=== PATIENT | female | born 1990 | race Caucasian/White ===

== ENCOUNTER 2017-08-07 18:23 | Emergency (ER) | payer OTHER ==
[~2017-08-07] VITALS: Ht 154.9 cm; Wt 91.8 kg
[~2017-08-07 18:23] MED LIST: MTR600X PO; PRENTAB26 PO
[2017-08-07 18:27] VITALS: TEMP 36.6; Ht 154.9 cm; Wt 91.8 kg
[2017-08-07] MEDS ORDERED: HYDROCODONE/ACETAMIN 5/325MG TAB PO STA (18:49)
[2017-08-07] MEDS ORDERED: IBUPROFEN 600 MG TAB PO STA (18:49)
[2017-08-07] MEDS ORDERED: AMOXICILLIN 250 MG CAP PO ONE (19:00)
--- NOTE | 2017-08-07 19:07 | EMERGENCY ROOM VISIT NOTE ---
ED Visit Note First contact with patient: 18:32 CHIEF COMPLAINT: Toothache HISTORY OF PRESENT ILLNESS: This 27-year-old female patient presented to the emergency department with her significant other with a progressive toothache for past few months. The patient believes it is coming from right lower molar. The pain is now steady and severe and radiates to the face. The patient does not have a dentist appointment set up yet. The patient has been busy with work and putting it off.. They rate their pain a 7/10 and the ibuprofen and Tylenol they have been taking has not relieved the pain. Denies facial swelling or fever. The patient denies any discharge from the mouth. REVIEW OF SYSTEMS: A 6 system review of systems was completed with positives and pertinent negatives listed in the HPI. ALLERGIES: No known drug allergies MEDICATIONS: Reviewed PMH: Otherwise healthy SOCIAL HISTORY: Smokes 6-7 cigarettes per day. Denies EtOH. She is employed. PHYSICAL EXAM: Vitals are noted on the nurse's note and reviewed by myself. Vital signs stable. Temperature 36.6C orally. GENERAL: 27-year-old female, in no acute distress, nondiaphoretic, well-developed well-nourished. Mouth: The right lower molar is very carious and fractured. The gum is swollen and tender around it, without any discharge or signs of an abscess. The remainder of the pharynx and tonsils are without erythema, edema, or exudate. The airway is patent. There is no facial swelling, cervical or submandibular lymphadenopathy. The patient appears uncomfortable and in pain. The patient has overall poor dental hygiene. EARS: External auditory canals clear, tympanic membranes pearly martinez without erythema or effusion bilaterally. ED COURSE: The patient was seen and examined. She was given 1 dose of amoxicillin. She was also given a dose of [place] and Motrin. Discharge instructions were reviewed, and she was discharged in good condition DIAGNOSIS: Odontalgia DISCHARGE INSTRUCTIONS & TREATMENT: Call a dentist as soon as possible for definitive treatment Continue Orajel Ibuprofen 600 mg every 6 hours [place] 1-2 tabs every 4 hours for severe pain. Do not drink alcohol or drive while taking this medication. This may be taken with ibuprofen, but avoid Tylenol. Amoxicillin 500 mg t.i.d. x 10 days for infection. Return sooner if shortness of breath, discharge, or change in vision and hearing occur. This chart was completed in part utilizing [employer] Speech Voice Recognition software. Attempts were made to minimize the grammatical errors, random word insertions, pronoun errors and incomplete sentences. Any formal questions or concerns about the content, text or information contained within the body of this dictation should be directly addressed to the provider for clarification.
[2017-08-07] MEDS ORDERED: HYDR-5688 PO (19:08)
[2017-08-07 19:16] VITALS: BP 125/84; PULSE 79; O2SAT 100
[2017-08-07] MEDS ORDERED: AMOX500C3 PO (19:16)
== END 2017-08-07 19:17 | disposition home or self-care (01) ==
LOC: C.EDB 18:24 → C.EDD 19:17
DX: K02.9 Dental caries, unspecified (principal); K03.81 Cracked tooth; F17.210 Nicotine dependence, cigarettes, uncomplicated